=== PATIENT | male | born 1975 | race Caucasian/White ===

== ENCOUNTER → 2020-02-07 | Outpatient (CLI) | payer BC ==
[~2020-02-07] MED LIST: ACETAMINOPHEN-1 EAC1 PO; CRESTOR40 MG PO; ECOTRIN81 MG PO; GLUCOPHAGE1000 MG PO; K-DUR TAB 10 M10 MEQ PO; LASIX40 MG PO; LEVOFLOXACIN750 MG PO; METOPROLOL TART50 MG PO; NITROSTAT0.4 MG SL; PLAVIX75 MG PO; SPIRONOLACTONE25 MG PO; VISTARIL 50 MG50 MG PO; ZESTRIL/PRINIVI10 MG PO
[2020-02-07 11:55] LABS: HEMOGLOBIN 14.7 gm/dl (14.0-17.5); RED BLOOD COUNT 4.74 M/UL (4.20-5.50); WHITE BLOOD COUNT 5.5 K/UL (4.5-11.0)
[2020-02-07 12:25] LABS: BUN/CREATININE RATIO 21 (0-10)
== END ==
LOC: LAB 11:28
PROVIDERS: Internal Medicine Cardiovascular Disease
DX: I11.0 Hypertensive heart disease with heart failure (principal); I50.22 Chronic systolic (congestive) heart failure; I25.5 Ischemic cardiomyopathy; R06.02 Shortness of breath
CPT/HCPCS: 36415; 71046; 80048; 85025

== ENCOUNTER 2020-02-12 07:07 | Outpatient (CLI) | payer BC ==
[~2020-02-12] VITALS: Ht 177.8 cm; Wt 98.9 kg
[~2020-02-12 07:07] MED LIST changes: -ACETAMINOPHEN-1 EAC1 PO; -LEVOFLOXACIN750 MG PO; -SPIRONOLACTONE25 MG PO
[2020-02-12] MEDS ORDERED: SPIRONOLACTONE25 MG PO (08:13)
[2020-02-13] MEDS ORDERED: ACETAMINOPHEN-1 EAC1 PO ×2 (08:01→10:30)
[2020-02-13] MEDS ORDERED: LEVOFLOXACIN750 MG PO (10:14)
== END 2020-02-13 11:00 | disposition home or self-care (01) ==
LOC: CATH 07:07 → PROG CARE 12:25 → CATH 02-13 11:00
DX: I42.0 Dilated cardiomyopathy (principal); I25.5 Ischemic cardiomyopathy; I11.0 Hypertensive heart disease with heart failure; I50.22 Chronic systolic (congestive) heart failure; E78.5 Hyperlipidemia, unspecified; I45.4 Nonspecific intraventricular block; I44.7 Left bundle-branch block, unspecified; I25.10 Atherosclerotic heart disease of native coronary artery without angina pectoris; E11.9 Type 2 diabetes mellitus without complications; I25.2 Old myocardial infarction; Z79.82 Long term (current) use of aspirin; Z95.5 Presence of coronary angioplasty implant and graft; Z79.84 Long term (current) use of oral hypoglycemic drugs; Z82.49 Family history of ischemic heart disease and other diseases of the circulatory system; Z79.899 Other long term (current) drug therapy
CPT/HCPCS: 33225; 33249; 71045; 82962; 93005; 93641; 99152; 99153; C1769; C1777; C1882; C1898; C1900; J1200; J1644; J2250; J2270; J3010; J3370; J7040; J7050; J7070; Q9965

== ENCOUNTER → 2020-11-06 | Outpatient (CLI) | payer BC ==
[~2020-11-06] MED LIST changes: +ACETAMINOPHEN-1 EAC1 PO; +LEVOFLOXACIN750 MG PO; +SPIRONOLACTONE25 MG PO
== END ==
LOC: ECHO 11-05 08:30
DX: Z02.89 Encounter for other administrative examinations (principal)
CPT/HCPCS: ECHO; 93306